=== PATIENT | female | born 1975 | race American Indian/Alaskan Native ===

== ENCOUNTER 2016-08-12 15:13 | Emergency (ER) | payer OTHER ==
[2016-08-12] MEDS ORDERED: NAPROSYN PO ONE (18:00)
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
[2016-08-12] MEDS ORDERED: ULTRAM PO ONE (20:03)
--- NOTE | 2016-08-12 20:14 | XRay Report ---
FINAL REPORT EXAM: XR SPINE LUMBOSACRAL 2-3V HISTORY: pain COMPARISON: None available. FINDINGS: Four views of the lumbar spine obtained. Lumbar vertebral body heights are preserved. Mild dextroconvex curvature. Mild loss of disc height L4-L5 and L5-S1 levels. Pedicles are intact. IMPRESSION: Lumbar vertebral body heights are preserved. Mild scoliotic curvature and degenerative change.
--- NOTE | 2016-08-12 20:15 | XRay Report ---
FINAL REPORT EXAM: XR SPINE SACRUM/COCCYX 2 HISTORY: pain COMPARISON: None available. FINDINGS: Three views of the sacrum coccyx obtained. Mild degenerative changes of the SI joints. Mild hypertrophic spurring. Pelvic ring is intact. Normal segmentation the sacrum coccyx on the lateral view. No acute fracture. IMPRESSION: No acute bony abnormality.
--- NOTE | 2016-08-12 20:17 | XRay Report ---
FINAL REPORT EXAM: XR SPINE THORACIC 3V HISTORY: pain COMPARISON: None available. FINDINGS: Three views of the thoracic spine obtained. Thoracic vertebral body heights are preserved. Minimal endplate osteophyte loss of disc height. Minimal levoconvex curvature. IMPRESSION: Very mild degenerative changes. Thoracic vertebral body heights are preserved.
[2016-08-12 20:46] LABS: Bacteria,Urine 2+ /HPF (Negative); Bilirubin,Urine NEG (Negative); Blood,Urine MOD (Negative); Ketones,Urine NEG (Negative); Leukocyte Esterase,Urine NEG (Negative); Mucus,Urine 2+ /HPF; Nitrite,Urine POS (Negative); Protein,Urine <15 mg/dL mg/dL (Negative); Urobilinogen,Urine < 2.0 mg/dL (<2.0)
[2016-08-12 21:46] VITALS: BP 121/61
== END 2016-08-12 21:46 | disposition home or self-care (01) ==
LOC: ED 15:13
DX: N39.0 Urinary tract infection, site not specified (principal); M19.90 Unspecified osteoarthritis, unspecified site
CPT/HCPCS: 72072; 72100; 72220; 81001; 81025; 99283